=== PATIENT | female | born 1955 | race Caucasian/White ===

== ENCOUNTER → 2016-09-02 | Outpatient (CLI) | payer OTHER ==
[~2016-09-02] MED LIST: ADVAIR 500/501 DISK IH; ATIVAN1 MG PO; AUGMENTIN500 MG PO; AUGMENTIN875 MG PO; BENAZEPRIL HCL5 MG PO; DOMP10T PO; FUROSEMIDE40 MG PO; FUROSEMIDE80 MG PO; GLUCOPHAGE1000 MG PO; HUMALOG100 UNIT/1 SC; HUMULIN N100 UNIT/2 SC; INSULIN PUMP SCCONT; K-DUR20 MEQ PO; KEFLEX250 MG PO; KEPPRA500 MG PO; LEVAQUIN500 MG PO; LEVAQUIN750 MG PO; LEVEMIR100 UNIT/2 SC; LEXAPRO10 MG PO; LEXAPRO20 MG PO; LIPITOR40 MG PO; MACRODANTIN100 MG PO; MOBIC15 MG PO; MOBIC7.5 MG PO; MYRBETRIQ50 MG PO; SPIRIVA1 INHALATI IH; SPIRONOLACTONE100 MG PO; SPIRONOLACTONE25 MG PO; SYMBICORT60 INHALAT IH; VENTOLIN HFA18 GM IH; VITAMIN D1000 UNIT PO; VITAMIN D2000 UNIT PO; ZOFRAN ODT4 MG PO
== END | disposition home or self-care (01) ==
LOC: NUC 07:20
DX: K31.84 Gastroparesis (principal)
CPT/HCPCS: 78264; A9541

== ENCOUNTER 2016-09-14 22:15 | Emergency (ER) | payer OTHER ==
[~2016-09-14] VITALS: Ht 160 cm; Wt 141.2 kg
[2016-09-15 00:44] VITALS: BP 127/58
== END 2016-09-15 00:46 | disposition home or self-care (01) ==
LOC: EME 22:15
DX: G43.909 Migraine, unspecified, not intractable, without status migrainosus (principal); T36.1X5A Adverse effect of cephalosporins and other beta-lactam antibiotics, initial encounter; E11.9 Type 2 diabetes mellitus without complications; Z79.4 Long term (current) use of insulin; Z91.040 Latex allergy status; Z88.6 Allergy status to analgesic agent
CPT/HCPCS: 71010; 99281; 99284; J1885; J7030

== ENCOUNTER 2017-05-26 15:51 | Emergency (ER) | payer OTHER ==
[~2017-05-26] VITALS: Ht 160 cm; Wt 137.7 kg
[2017-05-26 16:55] LABS: HEMATOCRIT 41.7 % (36.0-46.0); MCH 25.3 PG (29.0-34.0); MCHC 31.4 G/DL (30.0-36.0); MCV 80.7 FL (83-99); MEAN PLAT.VOLUME 9.3 uM^3 (9.5-12.4); PLATELET COUNT 359 K/uL (156-360); RBC DIS.WIDTH-SD 47.1 % (39-53); RED BLOOD COUNT 5.17 M/uL (3.80-5.20)
[2017-05-26 17:01] LABS: ADD MIUA? YES; BILIRUBIN NEGATIVE; BLOOD NEGATIVE; COLOR YELLOW ((YELLOW)); GLUCOSE (STRIP) 50; KETONES NEGATIVE; LEUKOCYTES LARGE; NITRITE POSITIVE; PROTEIN (STRIP) 100; SPECIFIC GRAVITY 1.023 (1.000-1.030); UROBILINOGEN 0.2 MG/DL (0.2-1.0)
[2017-05-26 17:02] LABS: CHLORIDE 99 mEq/L (99-109); POTASSIUM 4.1 mEq/L (3.7-5.4); SODIUM 139 mEq/L (136-147)
[2017-05-26 17:04] LABS: GLUCOSE 156 mg/dL (70-99)
[2017-05-26 17:05] LABS: ANION GAP 15 MEQ/L (2-14)
[2017-05-26 17:06] LABS: TOTAL BILIRUBIN 0.5 mg/dL (0.0-1.0)
[2017-05-26 17:08] LABS: ALKALINE PHOSPHATASE 146 IU/L (3-129); GFR ESTIMATE (CALCULATED) > 59 mL/min/
[2017-05-26 17:09] LABS: UREA NITROGEN (BUN) 13 mg/dL (9-23)
[2017-05-26 17:31] LABS: BACTERIA 2+ /HPF; CASTS NONE SEEN /LPF; CRYSTALS NONE SEEN; EPITHELIAL CELLS 1+ /HPF; MUCUS TRACE /LPF; RED BLOOD CELLS RARE /HPF (0-5); UCUL ADDED? YES; WHITE BLOOD CELLS TNTC /HPF (0-5)
[2017-05-26] MEDS ORDERED: PYRIDIUM200 MG PO (19:19)
[2017-05-26] MEDS ORDERED: ZOFRAN ODT4 MG PO (19:19)
[2017-05-26] MEDS ORDERED: MACROBID100 MG PO (19:19)
[2017-05-26 19:38] VITALS: BP 129/95
== END 2017-05-26 19:41 | disposition home or self-care (01) ==
LOC: EME 15:51
DX: N39.0 Urinary tract infection, site not specified (principal); E11.9 Type 2 diabetes mellitus without complications; Z96.41 Presence of insulin pump (external) (internal); Z79.4 Long term (current) use of insulin; G43.909 Migraine, unspecified, not intractable, without status migrainosus; R56.9 Unspecified convulsions; F41.9 Anxiety disorder, unspecified; Z85.51 Personal history of malignant neoplasm of bladder; Z89.429 Acquired absence of other toe(s), unspecified side; Z79.84 Long term (current) use of oral hypoglycemic drugs; Z91.040 Latex allergy status; Z88.8 Allergy status to other drugs, medicaments and biological substances
CPT/HCPCS: 74176; 80053; 81003; 85027; 87077; 87086; 87186; 99281; 99284; J1885; J2405; J7030

== ENCOUNTER 2018-01-10 07:28 | Day surgery (SDC) | payer OTHER ==
[~2018-01-10] VITALS: Ht 162.6 cm; Wt 143.2 kg
[~2018-01-10 07:28] MED LIST changes: +MACROBID100 MG PO; +PYRIDIUM200 MG PO; +SINGULAIR10 MG PO; +WELLBUTRIN XL150 MG PO
[2018-01-10 08:16] VITALS: BP 126/58
[2018-01-10 11:27] VITALS: BP 147/86
[2018-01-10 12:15] VITALS: BP 133/71
== END 2018-01-10 12:51 | disposition home or self-care (01) ==
LOC: SDC 07:28
PROVIDERS: Podiatrist Foot & Ankle Surgery
PROC: 0Y6X0Z0 Detachment at Right 5th Toe, Complete, Open Approach (ICD-10-PCS; principal; 2018-01-10)
DX: M25.271 Flail joint, right ankle and foot (principal); S93.104A Unspecified dislocation of right toe(s), initial encounter; X58.XXXA Exposure to other specified factors, initial encounter; J44.9 Chronic obstructive pulmonary disease, unspecified; R01.1 Cardiac murmur, unspecified; E11.40 Type 2 diabetes mellitus with diabetic neuropathy, unspecified; E11.65 Type 2 diabetes mellitus with hyperglycemia; E66.9 Obesity, unspecified; Z68.43 Body mass index [BMI] 50.0-59.9, adult; Z79.4 Long term (current) use of insulin
CPT/HCPCS: 82948; 87070; 87075; 87076; 87205; 88305; 88311; J0690; J2250; J2405; S0020

== ENCOUNTER 2018-02-01 14:42 | Day surgery (SDC) | payer OTHER ==
[~2018-02-01] VITALS: Ht 162.6 cm; Wt 143.2 kg
[2018-02-01 15:33] VITALS: BP 135/70
[2018-02-01 20:02] VITALS: BP 132/60
== END 2018-02-01 20:30 | disposition home or self-care (01) ==
LOC: SDC 14:42
PROVIDERS: Podiatrist Foot & Ankle Surgery
DX: M86.171 Other acute osteomyelitis, right ankle and foot (principal); L02.611 Cutaneous abscess of right foot; L03.115 Cellulitis of right lower limb; E11.65 Type 2 diabetes mellitus with hyperglycemia; E66.9 Obesity, unspecified; Z68.43 Body mass index [BMI] 50.0-59.9, adult; E78.00 Pure hypercholesterolemia, unspecified; R01.1 Cardiac murmur, unspecified; J44.9 Chronic obstructive pulmonary disease, unspecified; Z96.653 Presence of artificial knee joint, bilateral; Z80.3 Family history of malignant neoplasm of breast; Z83.49 Family history of other endocrine, nutritional and metabolic diseases; Z80.52 Family history of malignant neoplasm of bladder; Z83.3 Family history of diabetes mellitus
CPT/HCPCS: 82948; 87070; 87075; 87186; 87205; 88304; S0020

== ENCOUNTER → 2018-02-02 | Outpatient (CLI) | payer OTHER | END | disposition home or self-care (01) | LOC: PICC 02-01 08:00 | DX: S91.301A Unspecified open wound, right foot, initial encounter (principal) | CPT/HCPCS: 76937; C1894 ==

== ENCOUNTER 2018-04-18 07:24 | Day surgery (SDC) | payer OTHER ==
[~2018-04-18] VITALS: Ht 157.5 cm; Wt 142.8 kg
[2018-04-18 08:00] VITALS: BP 136/63
[2018-04-18 11:33] VITALS: BP 133/61
[2018-04-18 11:51] VITALS: BP 135/63
== END 2018-04-18 12:04 | disposition home or self-care (01) ==
LOC: SDC 07:24
PROVIDERS: Obstetrics & Gynecology
PROC: 0QBN0ZZ Excision of Right Metatarsal, Open Approach (ICD-10-PCS; principal; 2018-04-18)
DX: E11.69 Type 2 diabetes mellitus with other specified complication (principal); M86.171 Other acute osteomyelitis, right ankle and foot; Z79.4 Long term (current) use of insulin; Z96.41 Presence of insulin pump (external) (internal); E11.3593 Type 2 diabetes mellitus with proliferative diabetic retinopathy without macular edema, bilateral; J44.9 Chronic obstructive pulmonary disease, unspecified; G47.30 Sleep apnea, unspecified; Z88.8 Allergy status to other drugs, medicaments and biological substances; Z91.040 Latex allergy status; E78.00 Pure hypercholesterolemia, unspecified
CPT/HCPCS: 82948; 87070; 87075; 87205; 88305; 88311; J1100; J2250; S0020